=== PATIENT | female | born 1990 | race Caucasian/White ===

== ENCOUNTER 2017-01-03 15:49 | Emergency (ER) | payer SELFPAY ==
[~2017-01-03] VITALS: Ht 167.6 cm; Wt 52.2 kg
[2017-01-03 15:58] VITALS: BP 130/80
[2017-01-03] MEDS ORDERED: TDAP [DIPH/PERTUSSIS/TET] 0.5 ML VIAL IM ONE ×2 (16:34→17:00)
== END 2017-01-03 17:08 | disposition home or self-care (01) ==
LOC: ER 15:54
DX: L60.0 Ingrowing nail (principal)
CPT/HCPCS: 11765; 90471; 90715; 99285; A4606; A6402; Z7610